=== PATIENT | male | born 1945 | race Caucasian/White ===

== ENCOUNTER 2023-02-10 14:52 | Outpatient (REF) | payer MEDICARE, SELFPAY ==
--- NOTE | ~2023-02-10 | XR_ITS ---
EXAMINATION: XR CHEST CLINICAL INFORMATION: Chronic cough COMPARISON: None available. TECHNIQUE: 2 views of the chest were obtained. FINDINGS: Small linear band of atelectasis or scarring at the left lung base. The lungs are otherwise normally aerated. Heart size is normal. Cardiac mediastinal contours normal. No pulmonary vascular congestion. Multilevel degenerative spondylosis the spine. Degenerative spurs of humeral head at the glenohumeral joint bilaterally. XR/XR chest 2V IMPRESSION: No acute abnormality of chest. Small linear band of atelectasis or scarring at the left lung base.
== END 2023-02-10 14:53 | disposition home or self-care (01) ==
LOC: HO.LAB 14:52
PROVIDERS: PCP Internal Medicine; Visit Provider Otolaryngology
DX: R05.3 Chronic cough (principal); R04.89 Hemorrhage from other sites in respiratory passages
CPT/HCPCS: 71046